=== PATIENT | female | born 1960 | race Caucasian/White ===

== ENCOUNTER 2017-04-27 14:55 | Emergency (ER) | payer BC ==
[2017-04-27] MEDS ORDERED: MORPHINE SULFATE 4 MG/ML DISP.SYRIN. ONE (15:07)
[2017-04-27] MEDS ORDERED: MORPHINE SULFATE 5 MG/ML SYRINGE. IV ONE (15:15)
[2017-04-27] MEDS ORDERED: MORPHINE SULFATE 4 MG/ML DISP.SYRIN. IV ONE (15:45)
[2017-04-27] MEDS: HYDROmorphone PF 1 MG/ML DISP.SYRIN IV ONE ×2 (16:00→16:45)
[2017-04-27] MEDS ORDERED: HYDROmorphone PF 1 MG/ML DISP.SYRIN ONE (16:44)
[2017-04-27] MEDS ORDERED: HYDROmorphone PF 1 MG/ML DISP.SYRIN IV ONE (17:15)
[2017-04-27 19:00] VITALS: BP 94/56
[2017-04-27] MEDS ORDERED: LORazepam 2 MG/ML VIAL IV ONE (19:15)
[2017-04-27] MEDS ORDERED: HALOPERIDOL LACT 5 MG/ML VIAL. IM ONE (19:15)
--- NOTE | 2017-04-28 09:31 | RAD ---
Two-view bilateral shoulder radiographs to include AP and lateral radiographs of the left and right humerus 04/27/2017 Clinical history: Fall with bilateral shoulder and arm pain. Portable AP internal and external rotation digital radiographs of both shoulders were obtained. AP and lateral digital portable radiographs of both the left and right humerus were obtained. No fracture or dislocation of the right shoulder is seen. No fracture or dislocation right humerus is noted. Mild to moderate degenerative changes are seen involving the right AC joint and right glenohumeral joint. No fracture or dislocation of the left shoulder is seen. Mild to moderate degenerative changes are seen involving the left glenohumeral joint and left AC joint. An acute spiral fracture of the proximal/mid diaphysis of the left humerus is seen. It is mildly comminuted. The major distal fracture fragment is mildly displaced anteriorly. No additional fracture is seen. Impression: Acute spiral fracture of the left humerus as outlined above.
== END 2017-04-27 19:05 ==
LOC: ER 14:55
DX: S42.342A Displaced spiral fracture of shaft of humerus, left arm, initial encounter for closed fracture (principal); W19.XXXA Unspecified fall, initial encounter; Y93.89 Activity, other specified; Y99.8 Other external cause status; Y92.89 Other specified places as the place of occurrence of the external cause
CPT/HCPCS: 73030; 73060; 96372; 96374; 96375; 96376; 99285; J1170; J1630; J2060; J2270